=== PATIENT | male | born 1960 | race African-American/Black ===

== ENCOUNTER 2016-06-15 13:41 | Observation (INO) | payer OTHER ==
[~2016-06-15] VITALS: Ht 172.7 cm; Wt 70.3 kg
[2016-06-15 21:42] LABS: HEMOGLOBIN 12.6 gm/dl (14.0-17.5); RED BLOOD COUNT 4.55 M/UL (4.20-5.50); WHITE BLOOD COUNT 5.8 K/UL (4.5-11.0)
[2016-06-15 22:04] LABS: BUN/CREATININE RATIO 19 (0-10)
[2016-06-16] MEDS ORDERED: LIPITOR10 MG PO (02:29)
[2016-06-16] MEDS ORDERED: IRON (02:29)
[2016-06-16 03:54] LABS: HEMOGLOBIN 12.1 gm/dl (14.0-17.5); RED BLOOD COUNT 4.39 M/UL (4.20-5.50); WHITE BLOOD COUNT 5.5 K/UL (4.5-11.0)
[2016-06-16 04:15] LABS: BUN/CREATININE RATIO 22 (0-10)
[2016-06-16] MEDS ORDERED: LIPITOR TAB 1010 MG PO (20:20)
[2016-06-16] MEDS ORDERED: NORVASC 5 MG TAB5 MG PO (20:21)
== END 2016-06-16 21:07 | disposition home or self-care (01) ==
LOC: ER1 13:41 → ZEROF 23:14 → MED SURG 4 23:14
PROVIDERS: Student in an Organized Health Care Education/Training Program; ADMIT Family Medicine
DX: R07.9 Chest pain, unspecified (principal); F17.210 Nicotine dependence, cigarettes, uncomplicated
CPT/HCPCS: ECHO; 36415; 71010; 78452; 80048; 80053; 80061; 82550; 82553; 83036; 83735; 83874; 84439; 84443; 84484; 85025; 93005; 93017; 93306; 96360; 99285; A9502; G0378; J2785; J7030

== ENCOUNTER 2020-05-22 05:15 | Observation (INO) | payer OTHER ==
[~2020-05-22] VITALS: Ht 172.7 cm; Wt 70.3 kg
[~2020-05-22 05:15] MED LIST: BUTALB-ACETAMI1 EACH PO; IRON; LIPITOR TAB 1010 MG PO; LIPITOR10 MG PO; NORVASC 5 MG TAB5 MG PO; ZOFRAN4 MG PO
[2020-05-22 07:49] LABS: HEMOGLOBIN 12.5 gm/dl (14.0-17.5); RED BLOOD COUNT 4.58 M/UL (4.20-5.50); WHITE BLOOD COUNT 6.3 K/UL (4.5-11.0)
[2020-05-22 08:40] LABS: BUN/CREATININE RATIO 15 (0-10)
[2020-05-22] MEDS ORDERED: VITAMIN B-1100 M1 PO (19:41)
[2020-05-22] MEDS ORDERED: MAG-OX 400 TAB400 MG PO (19:41)
[2020-05-23 06:05] LABS: HEMOGLOBIN 13.1 gm/dl (14.0-17.5); RED BLOOD COUNT 4.61 M/UL (4.20-5.50); WHITE BLOOD COUNT 6.4 K/UL (4.5-11.0)
[2020-05-23 06:29] LABS: BUN/CREATININE RATIO 15 (0-10)
--- NOTE | 2020-05-23 10:55 | NUR ---
INSTRUCTED ON CHEST PAIN AND USE OF MOTRIN AND NSAIDS . REPORT ANY INCREASE OF PAIN OR CHANGE, IF CHEST PAIN WORSENS OR RIB PAIN CONTINUES SPEAK WITH YOUR PRIMARY M.D. INSTRUCTED ON USE OF THIAMINE AND MAGNESIUM. VERBALIZED UNDERSTANDING REINIER KERNS R.N
== END 2020-05-23 13:32 | disposition home or self-care (01) ==
LOC: ER1 05:15 → CDU 09:45 → MED SURG 4 18:55
PROVIDERS: Physician Assistant Medical; ADMIT Internal Medicine
DX: R07.89 Other chest pain (principal); M94.0 Chondrocostal junction syndrome [Tietze]; I10 Essential (primary) hypertension; E78.5 Hyperlipidemia, unspecified; F17.200 Nicotine dependence, unspecified, uncomplicated; F10.10 Alcohol abuse, uncomplicated; Z20.822 Contact with and (suspected) exposure to COVID-19; Z79.899 Other long term (current) drug therapy
CPT/HCPCS: 36415; 71045; 80048; 80053; 82550; 82553; 83735; 83874; 84484; 85025; 85027; 85379; 93005; 96374; 99285; G0378; U0002

== ENCOUNTER 2020-06-22 15:48 | Emergency (ER) | payer OTHER ==
[~2020-06-22 15:48] MED LIST changes: +MAG-OX 400 TAB400 MG PO; +VITAMIN B-1100 M1 PO
[2020-06-22 17:46] LABS: HEMOGLOBIN 12.9 gm/dl (14.0-17.5); RED BLOOD COUNT 4.54 M/UL (4.20-5.50); WHITE BLOOD COUNT 5.1 K/UL (4.5-11.0)
[2020-06-22 18:04] LABS: BUN/CREATININE RATIO 18 (0-10)
[2020-06-22] MEDS ORDERED: ZOFRAN4 MG PO (20:21)
== END 2020-06-22 20:26 | disposition home or self-care (01) ==
LOC: ER1 15:48
PROVIDERS: Physician Assistant Medical
DX: R11.2 Nausea with vomiting, unspecified (principal); R19.7 Diarrhea, unspecified; F17.210 Nicotine dependence, cigarettes, uncomplicated; Z20.822 Contact with and (suspected) exposure to COVID-19
CPT/HCPCS: 80053; 81001; 82150; 83605; 83690; 85025; 96374; 99284; G0480; J2405; U0002

== ENCOUNTER → 2020-12-19 | Outpatient (CLI) | payer BC | LOC: KOH-I 13:15 | DX: M25.511 Pain in right shoulder (principal) | CPT/HCPCS: 73030 ==